=== PATIENT | female | born 1960 | race African-American/Black ===

== ENCOUNTER 2017-11-09 08:05 | Day surgery (SDC) | payer OTHER ==
[~2017-11-09] VITALS: Ht 167.6 cm; Wt 76.2 kg
[~2017-11-09 08:05] MED LIST: ASPIRIN EC81 MG PO; BAYER ASA325 MG PO; CALCIUM CITRATE +D PO; CVS OMEPRAZOLE20 MG PO; DEXILANT60 MG PO; ENTRESTO 24-261 TAB PO; FOSAMAX70 MG OR; GLYBURIDE5 M1 PO; GLYBURIDE5 MG PO; K-DUR/KLOR-CON20 MEQ PO; LANOXIN0.25 MG OR; LANOXIN0.25 MG PO; LANTUS100 MG/ML SC; LASIX 40 MG40 MG/TAB PO; LASIX20 MG OR; LISINOPRIL20 MG OR; LISINOPRIL20 MG PO; LISINOPRIL40 MG PO; LOPRESSOR25 MG PO; LOSARTAN POTASS50 MG PO; METOPROL TAR25 MG PO; METOPROL TAR50 MG PO; NAPROSYN500 MG PO; NITRO-TIME2.5 MG OR; PACERONE200 MG PO; PANTOPRAZOLE SO40 MG PO; PLAVIX75 MG PO; PREDNISONE5 MG PO; PROTONIX PO; RESTORIL15 MG PO; SIMVASTATIN40 MG PO; ULTRAM50 M1 PO; VICTOZA18 MG/3 ML SC; ZOCOR20 M1 PO; ZOCOR20 MG OR
[2017-11-09 10:53] VITALS: BP 115/57
== END 2017-11-09 11:20 | disposition home or self-care (01) | DRG 392 ==
LOC: ENDO 08:05 → ORM 16:00 → ENDO 16:00
PROVIDERS: ATTEND Internal Medicine Gastroenterology
PROC: 0DB48ZX Excision of Esophagogastric Junction, Via Natural or Artificial Opening Endoscopic, Diagnostic (ICD-10-PCS; principal; 2017-11-09)
DX: K21.9 Gastro-esophageal reflux disease without esophagitis (principal); K29.70 Gastritis, unspecified, without bleeding; K44.9 Diaphragmatic hernia without obstruction or gangrene; K80.20 Calculus of gallbladder without cholecystitis without obstruction; K82.8 Other specified diseases of gallbladder; E11.9 Type 2 diabetes mellitus without complications; I11.0 Hypertensive heart disease with heart failure; I50.9 Heart failure, unspecified; M32.9 Systemic lupus erythematosus, unspecified; E78.00 Pure hypercholesterolemia, unspecified; Z86.73 Personal history of transient ischemic attack (TIA), and cerebral infarction without residual deficits; Z95.810 Presence of automatic (implantable) cardiac defibrillator

== ENCOUNTER 2017-11-16 23:58 | Emergency (ER) | payer OTHER ==
[~2017-11-16] VITALS: Ht 167.6 cm; Wt 77.0 kg
[2017-11-17 01:45] VITALS: BP 128/71
== END 2017-11-17 01:45 | disposition home or self-care (01) | DRG 310 ==
LOC: ED 23:58
DX: R00.2 Palpitations (principal); I10 Essential (primary) hypertension; Z86.73 Personal history of transient ischemic attack (TIA), and cerebral infarction without residual deficits

== ENCOUNTER → 2018-06-03 | Outpatient (REF) | payer OTHER | END | disposition home or self-care (01) | DRG 951 | LOC: MAMMO 08:51 | PROVIDERS: ATTEND Internal Medicine | DX: Z12.31 Encounter for screening mammogram for malignant neoplasm of breast (principal) ==

== ENCOUNTER 2018-12-21 15:49 | Emergency (ER) | payer OTHER ==
[~2018-12-21] VITALS: Ht 167.6 cm; Wt 76.0 kg
[~2018-12-21 15:49] MED LIST changes: +ASPIRIN 8181 MG PO; +DIGOXIN250 MCG PO; -LANOXIN0.25 MG PO; +LASIX 40 MG TAB40 MG PO; -LASIX 40 MG40 MG/TAB PO; +PANTOPRAZOLE SO40 M1 PO
[2018-12-21] MEDS ORDERED: TRULICITY0.75 MG/0. SC (16:51)
[2018-12-21] MEDS ORDERED: ULTRAM50 M1 PO (17:23)
[2018-12-21] MEDS ORDERED: CEPHALEXIN500 M1 PO (17:23)
[2018-12-21] MEDS ORDERED: BACTRIM DS1 TAB PO (17:23)
[2018-12-21 17:27] VITALS: BP 137/87
[2018-12-22] MEDS ORDERED: TRULICITY1.5 MG/0.5 SC (13:23)
[2018-12-22] MEDS ORDERED: PROTONIX20 MG PO (13:23)
== END 2018-12-21 17:32 | disposition home or self-care (01) | DRG 603 ==
LOC: ED 15:49
DX: L02.11 Cutaneous abscess of neck (principal); E11.9 Type 2 diabetes mellitus without complications; I10 Essential (primary) hypertension; Z86.73 Personal history of transient ischemic attack (TIA), and cerebral infarction without residual deficits

== ENCOUNTER 2018-12-22 12:56 | Emergency (ER) | payer OTHER ==
[~2018-12-22] VITALS: Ht 167.6 cm; Wt 76.8 kg
[~2018-12-22 12:56] MED LIST changes: +BACTRIM DS1 TAB PO; +CEPHALEXIN500 M1 PO; +TRULICITY0.75 MG/0. SC
[2018-12-22] MEDS ORDERED: TRULICITY1.5 MG/0.5 SC (13:23)
[2018-12-22] MEDS ORDERED: PROTONIX20 MG PO (13:23)
[2018-12-22 13:35] VITALS: BP 164/91
== END 2018-12-22 13:35 | disposition home or self-care (01) | DRG 951 ==
LOC: ED 12:56
DX: Z48.01 Encounter for change or removal of surgical wound dressing (principal)

== ENCOUNTER 2019-12-18 06:26 | Day surgery (SDC) | payer OTHER ==
[~2019-12-18] VITALS: Ht 167.6 cm; Wt 70.8 kg
[~2019-12-18 06:26] MED LIST changes: +CALCIUM600 MG PO; +PROTONIX20 MG PO; +TRULICITY1.5 MG/0.5 SC
[2019-12-18 08:58] VITALS: BP 136/65
== END 2019-12-18 08:40 | disposition home or self-care (01) | DRG 581 ==
LOC: ORM 06:26
PROVIDERS: ATTEND Surgery
PROC: 0KBR0ZZ Excision of Left Upper Leg Muscle, Open Approach (ICD-10-PCS; principal; 2019-12-18)
DX: D17.9 Benign lipomatous neoplasm, unspecified (principal); E11.9 Type 2 diabetes mellitus without complications; Z95.0 Presence of cardiac pacemaker; Z20.828 Contact with and (suspected) exposure to other viral communicable diseases
CPT/HCPCS: J0131

== ENCOUNTER 2020-02-10 08:25 | Day surgery (SDC) | payer OTHER ==
[2020-02-10 11:03] VITALS: BP 144/69
== END 2020-02-10 10:56 | disposition home or self-care (01) | DRG 951 ==
LOC: ENDO 08:25 → ORM 10:10 → ENDO 10:56
PROVIDERS: ATTEND Surgery
PROC: 0DBN8ZX Excision of Sigmoid Colon, Via Natural or Artificial Opening Endoscopic, Diagnostic (ICD-10-PCS; principal; 2020-02-10)
PROC: 0DBL8ZX Excision of Transverse Colon, Via Natural or Artificial Opening Endoscopic, Diagnostic (ICD-10-PCS; 2020-02-10)
DX: Z12.11 Encounter for screening for malignant neoplasm of colon (principal); Q43.9 Congenital malformation of intestine, unspecified; D12.5 Benign neoplasm of sigmoid colon; D12.3 Benign neoplasm of transverse colon; K57.30 Diverticulosis of large intestine without perforation or abscess without bleeding; E11.9 Type 2 diabetes mellitus without complications; Z95.0 Presence of cardiac pacemaker; Z79.899 Other long term (current) drug therapy; Z86.010 Personal history of colon polyps; Z20.828 Contact with and (suspected) exposure to other viral communicable diseases